=== PATIENT | female | born 1990 | race Caucasian/White ===

== ENCOUNTER 2017-03-28 23:51 | Emergency (ER) | payer SELFPAY ==
[2017-03-29] VITALS: BMI 17.0
[2017-03-29] MEDS ORDERED: NS 1000 ML 1,000 ML ONE (00:09)
[2017-03-29] MEDS ORDERED: ZOFRAN INJ 4 MG VIAL ONE (00:09)
[2017-03-29] MEDS ORDERED: NS 1000 ML 1,000 ML IV ONE (00:17)
[2017-03-29] MEDS ORDERED: ZOFRAN INJ 4 MG VIAL IVP ONE (00:17)
--- NOTE | 2017-03-29 00:21 | DR.NAUSEAF ---
HPI - Time Seen Time seen: 15:00 - Primary Care Physician Primary Care Physician: INGE - HPI Comment HPI Comment: FEELING WORSE TONIGHT. - Complaints Chief Complaint Doctors Comments: FEVER, CHILLS, BODY ACHES, N/V AND CONGESTION TIMES ONE DAY. Chief Complaint:: PT C/O NAUSEA VOMITING BODY ACHES HEAD ACHE CHILLS - Reviewed Nurses Notes Reviewed: Yes - Source History Provided: Patient - Mode of Arrival Mode of Arrival: Ambulatory - Timing Onset of Chief Complaint: 03/28/17 - Context Onset: Spontaneous Recent: None : No History of: None - Quality Quality: Bilious - Associated Signs and Symptoms Abdominal Pain Quality: Cramping Symptoms: Abdominal Pain PMH - PMH Past Medical History: No Past Surgical History: Yes Surgical History: [employer] Surgery, Tonsillectomy Past Surgical History Comment: TUBAL - Family History History of Family Medical Conditions: Yes Family Medical History: Diabetes Mellitus, Cancer, Coronary Artery Disease, Hypertension - Social History Type of Tobacco Use: Cigarettes Alcohol Use: Occasionally Do you use any recreational Drugs:: No Lives With: Family Lives Where: Home - infectious screening In the last 2 months have you had wt loss of >10#?: NO Have you had fever, night sweats or hemotysis?: No Have you traveled outside the country in the last 6 months?: No Isolation: Standard ROS - Review of Systems Constitutional: Chills, Fever, Weakness, Fatigue Eyes: negative: Eye Pain, Discharge ENTM: Nose Congestion, Throat Pain. negative: Ear Pain, Nose Discharge Respiratoy: Moist Cough. negative: Short of Breath, Wheezing, Hemoptysis Cardiovascular: No Symptoms Reported Gastrointestinal/Abdominal: Abdominal Pain, Diarrhea, Nausea, Vomiting Genitourinary: No Symptoms Reported Neurological: No Symptoms Reported Musculoskeletal: Muscle Pain Integumentary: No Symptoms Reported Hematologic/Lymphatic: No Symptoms Reported Endocrine: No Symptoms Reported All Other Systems: Reviewed and Negative PE - Vital Signs Vitals: Temperature 98.2 F Pulse Rate [Left Brachial] 90 Pulse Rate 116 Respiratory Rate 16 Blood Pressure [Left Arm] 103/59 Blood Pressure 120/55 O2 Sat by Pulse Oximetry 98 - General Limitations: No Limitations General Appearance: Alert - Head Head Exam: Normal Inspection - Eyes Eye exam: Normal Appearance - ENT ENT Exam: Normal External Ear Exam - Neck Neck Exam: Trachea Midline - Chest Chest Inspection: Symmetric Chest Wall Rise - Respiratory Respiratory Exam: Normal Lung Sounds Bilat Respiratory Exam: Bilateral Clear to Auscultation - Cardiovascular Cardiovascular Exam: Regular Rate, Normal Rhythm, Normal Heart Sounds - Abdominal Exam Abdominal Exam: Normal Bowel Sounds, Soft. negative: Tenderness - Rectal Rectal Exam: Deferred - External Exam: Female: Deferred : Speculum Exam (Female): Deferred : Bimanual Exam (female): Deferred - Extremities Extremities Exam: Normal Inspection - Back Back Exam: Normal Inspection - Neurologic Neurological Exam: Alert, Oriented X3 - Psychiatric Psychiatric Exam: Normal Affect, Normal Mood - Skin Skin Exam: Normal Color MDM - Differential Diagnosis Differential Diagnosis: Considerations may Include:: Bowel Obstruction, Cholecystitis, Gastritis, Gastroenteritis, Pancreatitis, PUD, Urinary Tract Infection, Urolithiasis Course - Treatment Treatment: SEE ORDERS. - Education/Counseling Education/Counseling: Patient, Education Educated On: Diagnosis, Needs for Follow Up ROR - Labs Reviewed Laboratory Results Reviewed?: Yes Result Diagrams: 03/29/17 00:25 03/29/17 00:25 Laboratory: WBC 9.9 X10^3/uL (3.6-10.0) 03/29/17 00:25 RBC 4.40 X10^6/uL (3.5-5.4) 03/29/17 00:25 Hgb 14.0 g/dL (12.0-16.0) 03/29/17 00:25 Hct 40.8 % (36.0-47.0) 03/29/17 00:25 MCV 92.7 fL (80.0-100.0) 03/29/17 00:25 MCH 31.9 pg (27.0-34.0) 03/29/17 00:25 MCHC 34.4 g/dL (33.0-35.0) 03/29/17 00:25 RDW 13.7 % (11.6-16.5) 03/29/17 00:25 Plt Count 175 X10^3/uL (150.0-450.0) 03/29/17 00:25 Plt Count Comment Adequate (ADEQUATE) 03/29/17 00:25 MPV 9.7 fL (7.4-11.0) 03/29/17 00:25 Neut % 91.1 % (42.0-75.0) H 03/29/17 00:25 Lymph % 3.6 % (21.0-51.0) L 03/29/17 00:25 Colbert % 4.5 % (0.0-13.0) 03/29/17 00:25 Eos % 0.7 % (0.9-2.9) L 03/29/17 00:25 Baso % 0.1 % (0.2-1.0) L 03/29/17 00:25 Neut # 9.0 x10^3/uL (2.2-4.8) H 03/29/17 00:25 Lymph # 0.4 X10^3/uL (1.3-2.9) L 03/29/17 00:25 Colbert # 0.4 x10^3/uL (0.3-0.8) 03/29/17 00:25 Eos # 0.1 x10^3/uL (0.0-0.2) 03/29/17 00:25 Baso # 0.0 X10^3/uL (0.0-0.1) 03/29/17 00:25 Absolute Nucleated RBC 0.0 /100WBC 03/29/17 00:25 Total Counted 100 03/29/17 00:25 Neutrophils % (Manual) 88 % (39-76) H 03/29/17 00:25 Band Neutrophils % 4 % (0-10) 03/29/17 00:25 Lymphocytes % (Manual) 4 % (13-43) L 03/29/17 00:25 Monocytes % (Manual) 3 % (4-9) L 03/29/17 00:25 Eosinophils % (Manual) 1 % (0-6) 03/29/17 00:25 Plt Morphology Comment Normal (NORMAL) 03/29/17 00:25 RBC Morphology Normal (NORMAL) 03/29/17 00:25 Sodium 139 mmol/L (136-145) 03/29/17 00:25 Corrected Sodium 140 mmol/L (136-145) 03/29/17 00:25 Potassium 3.4 mmol/L (3.5-5.1) L 03/29/17 00:25 Chloride 104 mmol/L (98-107) 03/29/17 00:25 Carbon Dioxide 24.9 mmol/L (21-32) 03/29/17 00:25 BUN 19 mg/dL (7-18) H 03/29/17 00:25 Creatinine 0.86 mg/dL (0.55-1.02) 03/29/17 00:25 Est GFR (MDRD) Af Amer > 60 (>60) 03/29/17 00:25 Est GFR (MDRD) Non-Af > 60 (>60) 03/29/17 00:25 Glucose 142 mg/dL (65-99) H 03/29/17 00:25 Calcium 8.1 mg/dL (8.5-10.1) L 03/29/17 00:25 Corrected Calcium TNP 03/29/17 00:25 Total Bilirubin 0.70 mg/dL (0.2-1.0) 03/29/17 00:25 AST 20 Units/L (15-37) 03/29/17 00:25 ALT 28 Units/L (12-78) 03/29/17 00:25 Alkaline Phosphatase 61 Units/L (46-116) 03/29/17 00:25 Total Protein 7.3 g/dL (6.4-8.2) 03/29/17 00:25 Albumin 3.8 g/dL (3.4-5.0) 03/29/17 00:25 Globulin 3.5 g/dL (2.5-4.5) 03/29/17 00:25 Albumin/Globulin Ratio 1.1 Ratio (1.1-2.1) 03/29/17 00:25 Amylase 46 Units/L (25-115) 03/29/17 00:25 Lipase 177 Units/L (73-393) 03/29/17 00:25 HCG, Qual Negative <10 mIU/mL 03/29/17 00:25 Influenza Type A (PCR) Negative (NEGATIVE) 03/29/17 00:17 Influenza Type B (PCR) Negative (NEGATIVE) 03/29/17 00:17 S. pyogenes (TEM-PCR) Not detected (NOT DETECT) 03/29/17 00:17 - XRAY XRAY Interpreted by: Radiologist XRAY Findings: REPORT DISCUSS WITH PATIENT - Diagnosis Discharge Problem: Nausea and vomiting in adult patient, Gastroenteritis Abdominal pain Qualifiers: Abdominal location: generalized Qualified Code(s): R10.84 - Generalized abdominal pain - Discharge Plan Disposition: 01 HOME, SELF-CARE Condition: Stable Prescriptions: Diphenoxylate/Atropine [Lomotil] 1 tab PO TID PRN #15 tab PRN Reason: Ibuprofen [MOTRIN TAB 600 MG *] 600 mg PO TID PRN #30 tab PRN Reason: Pain/Inflammation Ondansetron HCl [ZOFRAN SYRUP 4 MG/5 ML *] 4 mg PO Q8H PRN #12 ml PRN Reason: Nausea/Vomiting Ranitidine HCl [ZANTAC TAB 150 MG *] 150 mg PO BID #20 tab - Follow ups/Referrals Follow ups/Referrals: NFD,None [Primary Care Provider] - 3 days - Instructions Instructions: Gastritis, Adult, [id number], Nausea and Vomiting, Adult, Easy- to-Read, Abdominal Pain, Adult, [id number] Additional Instructions: RETURN TO ED IF WORSE.
[2017-03-29 01:07] LABS: BASOPHILS % (AUTO) 0.1 % (0.2-1.0); EOSINOPHILS # (AUTO) 0.1 x10^3/uL (0.0-0.2); EOSINOPHILS % (AUTO) 0.7 % (0.9-2.9); HEMATOCRIT 40.8 % (36.0-47.0); LYMPHOCYTES # (AUTO) 0.4 X10^3/uL (1.3-2.9); LYMPHOCYTES % (AUTO) 3.6 % (21.0-51.0); MEAN CORPUSCULAR HEMOGLOBIN 31.9 pg (27.0-34.0); MEAN CORPUSCULAR HGB CONC 34.4 g/dL (33.0-35.0); MEAN CORPUSCULAR VOLUME 92.7 fL (80.0-100.0); MEAN PLATELET VOLUME 9.7 fL (7.4-11.0); MONOCYTES # (AUTO) 0.4 x10^3/uL (0.3-0.8); MONOCYTES % (AUTO) 4.5 % (0.0-13.0); NEUTROPHILS % (AUTO) 91.1 % (42.0-75.0); PLATELET COUNT 175 X10^3/uL (150.0-450.0); RED CELL DISTRIBUTION WIDTH 13.7 % (11.6-16.5); WHITE BLOOD COUNT 9.9 X10^3/uL (3.6-10.0)
--- NOTE | 2017-03-29 01:20 | CT ---
CT abdomen pelvis without contrast Indication: Right lower quadrant pain. Technique: Helical images through the abdomen pelvis without contrast. Coronal and sagittal reformats provided. Findings: Review of bone windows shows no osseous lesion. Limited images through the lower chest demo nstrate no acute abnormality. Abdomen: The liver, spleen, gallbladder, pancreas, adrenal glands, kidneys, stomach and small bowel a re within normal limits, given noncontrast technique and attempted limitations for solid organ pathol ogy. The appendix and colon show no acute abnormality. Vasculature is free of plaque. Pelvis: The urinary bladder, rectum, uterus and adnexa show no acute abnormality. Impression: No acute abdomen or pelvis abnormality, within the limits of a non contrasted study. Reported By:
[2017-03-29 01:46] LABS: ALANINE AMINOTRANSFERASE 28 Units/L (12-78); ALBUMIN 3.8 g/dL (3.4-5.0); ALKALINE PHOSPHATASE 61 Units/L (46-116); AMYLASE 46 Units/L (25-115); ASPARTATE AMINO TRANSFERASE 20 Units/L (15-37); BLOOD UREA NITROGEN 19 mg/dL (7-18); CALCIUM 8.1 mg/dL (8.5-10.1); CARBON DIOXIDE 24.9 mmol/L (21-32); CHLORIDE 104 mmol/L (98-107); COR NA(FOR HYPERGLY) 140 mmol/L (136-145); CREATININE 0.86 mg/dL (0.55-1.02); LIPASE 177 Units/L (73-393); SODIUM 139 mmol/L (136-145); TOTAL PROTEIN 7.3 g/dL (6.4-8.2); eGFR BLACK RACES > 60 (>60); eGFR NON BLACK RACES > 60 (>60)
[2017-03-29 01:50] LABS: BAND NEUTROPHILS % 4 % (0-10); PLATELET MORPHOLOGY COMMENT NORMAL (NORMAL)
[2017-03-29 01:55] LABS: SERUM PREGNANCY TEST, QUAL NEGATIVE <10 mIU/mL
[2017-03-29] MEDS ORDERED: K-LYTE EFFERVESCENT PO ONE (02:00)
[2017-03-29] MEDS ORDERED: K-LYTE EFFERVESCENT ONE (02:11)
[2017-03-29 02:54] VITALS: BP 103/59
== END 2017-03-29 02:55 | disposition home or self-care (01) ==
LOC: ER 23:51
DX: K52.89 Other specified noninfective gastroenteritis and colitis (principal); R11.2 Nausea with vomiting, unspecified; R10.84 Generalized abdominal pain
CPT/HCPCS: 36415; 74176; 80053; 82150; 83690; 84703; 85025; 87502; 87651; 96365; 96367; 96374; 99283; A4222; J2405

== ENCOUNTER 2017-07-04 15:56 | Emergency (ER) | payer OTHER ==
[2017-07-04 16:05] VITALS: BP 126/78; BMI 23.8
--- NOTE | 2017-07-04 16:37 | RAD ---
Left hand, three views Indication: Hand trauma Comparison: None Findings: There is a nondisplaced oblique fracture extending through the shaft of the ring finger mid dle phalanx. No definite intra-articular extension into the PIP or DIP joint is seen. Mild soft tissu e swelling about the ring finger is noted. The remainder of the left hand is unremarkable Impression: Nondisplaced fracture of the ring finger middle phalanx, as above. Reported By:
--- NOTE | 2017-07-04 16:44 | DR.GENAD ---
HPI - PCP Primary Care Physician: INGE - HPI Comment HPI Comment: PAIN WORSE TODAY. - Complaint/Symptoms Chief Complaint Doctors Comments: SWELLING AND PAIN LT 5TH FINGER TIMES 2 DAYS. Chief Complaint:: Pt states that this past Sunday she was playing around thought she had jammed her left ring finger. Pulled on finger and gave it a few days thinking the swelling and pain would get better. Pain has increased today. Pain is described as intermittent throbbing currently rated 7/10. Self Treatment fo Chief Complaint: Pt has taken Aspirin for pain at home with no relief - Nurses notes reviewed Nurses Notes Review: Yes - Source History Provided: Patient - Mode of Arrival Mode of Arrival: Ambulatory - Timing Onset of Chief Complaint: 07/02/17 Came on: Suddenly - Duration Duration: Constant Duration: Days - Severity Severity: Moderate PMH - PMH Past Medical History: No Past Surgical History: Yes Surgical History: Tonsillectomy - Family History History of Family Medical Conditions: Yes Family Medical History: Hypertension - Social History Does patient currently use any type of tobacco product: Yes Have you used tobacco products in the last 12 months: Yes Type of Tobacco Use: Cigarettes Does any household member use tobacco: No Alcohol Use: Occasionally Do you use any recreational Drugs:: No Lives With: Mom Lives Where: Home - infectious screening In the last 2 months have you had wt loss of >10#?: NO Have you had fever, night sweats or hemotysis?: No Have you traveled outside the country in the last 6 months?: No Isolation: Standard ROS - Review of Systems Constitutional: No Symptoms Reported Eyes: No Symptoms Reported ENTM: No Symptoms Reported Respiratoy: No Symptoms Reported Cardiovascular: No Symptoms Reported Gastrointestinal/Abdominal: No Symptoms Reported Genitourinary: No Symptoms Reported Neurological: No Symptoms Reported Musculoskeletal: Left, Hand Integumentary: Change in Color, Bruises Hematologic/Lymphatic: No Symptoms Reported Endocrine: No Symptoms Reported All Other Systems: Reviewed and Negative PE - Vital Signs Vitals: Temperature 97.1 F Pulse Rate 80 Respiratory Rate 20 Blood Pressure [Left Arm] 103/59 Blood Pressure 126/78 O2 Sat by Pulse Oximetry 98 - General General Appearance: Alert - Head Head Exam: Normal Inspection - Eyes Eye exam: Normal Appearance - ENT ENT Exam: Normal External Ear Exam External Ear Exam: Normal External Inspection - Neck Neck Exam: Trachea Midline - Chest Chest Inspection: Symmetric Chest Wall Rise - Respiratory Respiratory Exam: Normal Lung Sounds Bilat Respiratory Exam: Bilateral Clear to Auscultation - Cardiovascular Cardiovascular Exam: Regular Rate, Normal Rhythm, Normal Heart Sounds - Abdominal Exam Abdominal Exam: Normal Inspection - Extremities Extremities Exam: Tenderness (LT 5TH FINGER SWOLLEN AND TENDER. DECREASE ROM.) - Neurologic Neurological Exam: Alert - Skin Skin Exam: Erythema MDM - Differential Diagnosis Differential Diagnosis: LT 5TH FINGER FRACTURE, CONTUSION, SPRAIN Course - Treatment Treatment: SEE ORDERS. - Education/Counseling Education/Counseling: Patient, Education Educated On: Diagnosis, Needs for Follow Up ROR - XRAY XRAY Interpreted by: Radiologist XRAY Findings: REPORT DISCUSS WITH PATIENT. - Diagnosis Discharge Problem: Fracture of finger, left Qualifiers: Encounter type: initial encounter Finger: little finger Fracture type: closed Phalanx: middle Fracture alignment: nondisplaced Qualified Code(s): S62.657A - Nondisplaced fracture of medial phalanx of left little finger, initial encounter for closed fracture - Discharge Plan Disposition: 01 HOME, SELF-CARE Condition: Stable Prescriptions: Ibuprofen [MOTRIN TAB 600 MG *] 600 mg PO TID PRN #20 tab PRN Reason: Pain/Inflammation - Follow ups/Referrals Follow ups/Referrals: NFD,None [Primary Care Provider] - 3 days MIGUEL NICHOLAS [STAFF PHYSICIAN] - 1 day - Instructions Instructions: Finger Fracture, [id number] Additional Instructions: RETURN TO ED IF WORSE.
== END 2017-07-04 16:47 | disposition home or self-care (01) ==
LOC: ER 16:08
DX: S62.657A Nondisplaced fracture of middle phalanx of left little finger, initial encounter for closed fracture (principal); W23.1XXA Caught, crushed, jammed, or pinched between stationary objects, initial encounter
CPT/HCPCS: 73130; 99282